=== PATIENT | female | born 1965 | race Caucasian/White ===

== ENCOUNTER 2016-07-29 06:11 | Inpatient (IN) | payer BC ==
[~2016-07-29] VITALS: Ht 149.9 cm; Wt 101.2 kg
[2016-07-29] VITALS (25 sets, daily range): BP systolic 112–154; BP diastolic 51–82; PULSE 74–108; RESP 11–20; Ht 149.9 cm; Wt 101.2 kg
[2016-07-29] MEDS ORDERED: PROPOFOL 20 ML ONE (06:12)
[2016-07-29] MEDS ORDERED: LIDOCAINE 2% (SDV) 5 ML INJ ONE (06:12)
[2016-07-29] MEDS ORDERED: NEOSTIGMINE 3 MG/3 ML SYRINGE ONE (06:12)
[2016-07-29] MEDS ORDERED: ROCURONIUM 50 MG INJ ONE (06:12)
[2016-07-29] MEDS ORDERED: GLYCOPYRROLATE 1 MG INJ ONE (06:12)
[2016-07-29] MEDS ORDERED: MIDAZOLAM 1 MG/ML 2 ML INJ ONE (06:13)
[2016-07-29] MEDS ORDERED: FENTAnyl 50 MCG/ML VIAL ONE ×2 (06:13→12:14)
[2016-07-29] MEDS ORDERED: LIDOCAINE 2%/EPI 30 ML INJ ONE (06:14)
[2016-07-29] MEDS ORDERED: ROPIVACAINE 0.5 % 30 ML VIAL ONE ×2 (06:14→06:39)
[2016-07-29] MEDS ORDERED: DEXAMETHASONE 4 MG/ML 1 ML INJ ONE (06:27)
[2016-07-29] MEDS ORDERED: ONDANSETRON 4 MG INJ ONE ×2 (06:27→12:15)
[2016-07-29] MEDS ORDERED: ATROPINE 1 MG/10 ML SYRINGE IV PRN (06:30)
[2016-07-29] MEDS ORDERED: DIPHENHYDRAMINE 50 MG INJ IV PRN (06:30)
[2016-07-29] MEDS ORDERED: LABETALOL HCL 20MG INJ IV PRN (06:30)
[2016-07-29] MEDS ORDERED: OXYCODONE/ACETAMINOPHEN (5/325) TAB PO PRN ×2 (06:30)
[2016-07-29] MEDS ORDERED: MEPERIDINE 25 MG INJ IV PRN (06:30)
[2016-07-29] MEDS ORDERED: ONDANSETRON 4 MG INJ IV PRN ×2 (06:30→12:30)
[2016-07-29] MEDS ORDERED: morphine (1 MG/ML) 10ML SYRINGE IV PRN ×3 (06:30)
[2016-07-29] MEDS ORDERED: MIDAZOLAM 1 MG/ML 2 ML INJ IV PRN (06:30)
[2016-07-29] MEDS ORDERED: HYDROmorphONE (0.2 MG/ML) 10ML SYG IV PRN ×3 (06:30)
[2016-07-29] MEDS ORDERED: hydrALAzine 20 MG INJ IV PRN (06:30)
[2016-07-29] MEDS ORDERED: FENTAnyl 50 MCG/ML VIAL IV PRN ×2 (06:30)
[2016-07-29] MEDS ORDERED: EPHEDrine SULFATE 50 MG/5 ML SYG IV PRN (06:30)
[2016-07-29] MEDS ORDERED: POVIDONE IODINE 10% 28.4 GM OINT ONE (06:40)
[2016-07-29] MEDS ORDERED: POLYMYXIN/BACITRACIN 1L IRRIG ONE ×2 (06:40→10:20)
[2016-07-29] MEDS ORDERED: FEXO180T61 PO (06:56)
--- NOTE | 2016-07-29 06:58 | HPN ---
Date/Time of Note Date/Time of Note DATE: 07/29/16 TIME: 06:57 Interval H&P Admission Note Pt. seen H&P reviewed: No system changes MOUNA ZUÑIGA MD Jul 29, 2016 06:58
[2016-07-29] MEDS ORDERED: METHYLENE BLUE 10 MG/ML VIAL ONE (08:16)
--- NOTE | 2016-07-29 10:40 | RADRPT ---
PROCEDURE: Intraoperative imaging of the right calcaneus with fluoroscopy. CLINICAL INDICATION: Right calcaneal pain. Intraoperative. TECHNIQUE: 3 images of the right calcaneus were obtained in the operating room with an image inten sifier. No radiologist was in attendance. 0.4 minutes of fluoroscopy time was used. COMPARISON: No prior study is available for comparison. FINDINGS: Images demonstrate osteotomy of the calcaneus and subsequent fixation of the calcaneal fragments wit h 2 cannulated screws. IMPRESSION: 1. Intraoperative imaging of the right calcaneus. RPTAT: QQ .Stone Ramos MD, Date Time Electronically viewed and signed by .Stone Ramos MD, on 07/29/2016 10:40 .R/
[2016-07-29] MEDS ORDERED: MEPERIDINE 25 MG INJ ONE (12:14)
[2016-07-29] MEDS ORDERED: HYDROmorphONE (0.2 MG/ML) 10ML SYG IV ONE (12:15)
[2016-07-29] MEDS ORDERED: morphine 1 MG/ML 30 ML (PCA) ONE (12:29)
[2016-07-29] MEDS ORDERED: morphine 10 MG INJ IV PRN (12:30)
[2016-07-29] MEDS ORDERED: BISACODYL 10 MG SUPP PR PRN (12:30)
[2016-07-29] MEDS ORDERED: CEFAZOLIN 1 GM INJ IV SCH (12:30)
[2016-07-29] MEDS: morphine 1 MG/ML 30 ML (PCA) IV SCH ×3 (12:31→23:51)
[2016-07-29] MEDS ORDERED: CEFAZOLIN 2 GM/50 ML (PMX) 50 ML IVPB ONE (12:53)
[2016-07-29] MEDS: CEFAZOLIN 2 GM/50 ML (PMX) 50 ML IVPB SCH ×2 (13:02→21:14)
[2016-07-29 13:05] LABS: ADD UMIC NO; URINE BILIRUBIN (Dip) NEGATIVE (NEGATIVE); URINE BLOOD (Dip) NEGATIVE (NEGATIVE); URINE COLOR LT. YELLOW (YELLOW); URINE GLUCOSE (Dip) NEGATIVE (NEGATIVE); URINE KETONES (Dip) NEGATIVE (NEGATIVE); URINE LEUKOCYTE ESTERASE (Dip) NEGATIVE (NEGATIVE); URINE NITRITE (Dip) NEGATIVE (NEGATIVE); URINE TOTAL PROTEIN (Dip) NEGATIVE (NEGATIVE); URINE UROBILINOGEN (Dip) 0.2 E.U./dL (0.1-1.0)
[2016-07-29] MEDS: SOD CHLORIDE 0.9% 1,000 ML IV SCH ×2 (13:05→21:15)
[2016-07-29] MEDS ORDERED: ALPRAZOLAM 0.5 MG TAB PO PRN (13:30)
--- NOTE | 2016-07-29 13:50 | CONS ---
DATE OF ADMISSION: 07/29/2016 DATE OF CONSULTATION: TYPE OF CONSULTATION: Medical. Thank you, Dr. Ramirez, for asking me to participate in medical management of this patient. REASON FOR CONSULTATION: To manage the patient's anxiety/depression, chronic pain syndrome, and ins omnia. HISTORY OF PRESENT ILLNESS: This 50-year-old female is now postop a right ankle surgery by Dr. Ritika herrera. The patient underwent a right ankle and right posterior tibial tendon reconstruction, a medial calcaneal sliding osteotomy and talonavicular capsule of the right ankle. 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 The patient underwent a nerve block for the procedure. The patient is now in the recovery room. She is lethar gic but does rouse easily to verbal stimuli and answers questions appropriately. PAST MEDICAL HISTORY: Anxiety, depression, morbid obesity, diffuse osteoarthritis with knee pain an d back pain, and allergic rhinitis. MEDICATIONS: She is on the following medications: 1. Alprazolam 1 mg twice a day as needed. 2. Astelin 1 spray in each nostril daily. 3. Cymbalta 120 mg a day. 4. Embeda 30 mg/1.2 mg extended release 1 tablet twice a day. 5. Lotrisone cream to affected area b.i.d. p.r.n. 6. Lyrica 150 mg twice a day. 7. Methocarbamol 750 mg twice a day. 8. Percocet 10/325 b.i.d. p.r.n. pain. 9. Trazodone 50 mg at night. 10. Abilify 5 mg in the morning. ALLERGIES: THE PATIENT IS ALLERGIC TO WHEAT, SOY, DAIRY, ESTROGEN, PROGESTERONE. FAMILY HISTORY: Unremarkable. SOCIAL HISTORY: The patient has never smoked. PHYSICAL EXAMINATION: GENERAL: At this time reveals a well-developed female in no apparent distress. VITAL SIGNS: Pulse of 86, blood pressure 147/52, O2 saturation 100% on 2 liter nasal cannula. HEENT: Head normocephalic. EYES: Extraocular muscles intact. NOSE AND MOUTH: Normal. NECK: Supple. No neck vein distention. LUNGS: Clear to auscultation. HEART: Regular rhythm. No murmurs, gallops or rubs. ABDOMEN: Soft, nontender. EXTREMITIES: She has a large cast on the right foot and ankle. Her left leg, there is no edema. IMPRESSION: The patient is now stable after having a right foot and ankle surgery today. She has a history of anxiety, depression, insomnia, allergic rhinitis and diffuse osteoarthritis with pain sy ndrome. I will manage the patient's medical conditions. PLAN: 1. Reorder routine medications. 2. Check labs in the morning. 3. Postop right foot and ankle reconstructive surgery. 4. I will follow the patient along with you. Dictated By: BAILEE ABRAMS MD, ND/SIMI Conf#: [id number] DID#: [id number]
[2016-07-29] MEDS: DIPHENHYDRAMINE 25 MG CAP PO PRN ×2 (15:51→23:55)
[2016-07-29] MEDS: OXYCODONE/ACETAMINOPHEN (5/325) TAB PO PRN ×2 (16:55→21:14)
[2016-07-29] MEDS: traZODone 50 MG TAB PO SCH (21:14)
[2016-07-29] MEDS: PREGABALIN 75 MG CAP PO SCH (21:14)
--- NOTE | 2016-07-29 22:31 | OPR ---
DATE OF OPERATION: 07/29/2016 PREOPERATIVE DIAGNOSES: Tear of the right posterior tibial tendon and spring ligament with planoval anton foot. POSTOPERATIVE DIAGNOSES: Tear of the right posterior tibial tendon and spring ligament with planova lgus foot. OPERATION PERFORMED: 1. Medial sliding calcaneal osteotomy of the right hindfoot with screw fixation. 2. Debridement of torn posterior tibial tendon and tenosynovectomy of the tendon sheath. 3. Flexor digitorum longus transfer to the navicular. 4. Reefing of spring ligament and talonavicular capsule. 5. Use of fluoroscopy to verify position and alignment of the osteotomy pins and screws. 6. Short leg cast. Extremely complex and difficult procedure because the patient had a very high BMI, more than 40 and the anatomy was quite abnormal, structures were quite scarred in, all necessitating an additional 60 minutes of operative time (22). SURGEON: Mouna Ramirez MD BRAKE LINING DRILLER: Teddy Madsen MD. ANESTHESIA: General with popliteal block. TOURNIQUET TIME: 1. 38 minutes. 2. 80 minutes. DESCRIPTION OF PROCEDURE: The patient taken to the operating room and placed in supine position. S atisfactory popliteal block was given. Satisfactory general anesthesia was administered, 2 grams An cef given intravenously. The patient was rolled in the left lateral decubitus position, secured wit h beanbag, kidney rest, axillary roll, arms were carefully padded. Tourniquet inflated to 300 mmHg. An oblique 45-degree incision was marked on the skin under fluoroscopy at the appropriate position . Incision was made, dissection carried down to subcutaneous tissue to the periosteum. Periosteum was then marked with a 45-degree angle, again under fluoroscopy and the periosteum was elevated with electrosurgery. Oscillating saw was used to cut through the calcaneus. We stopped at the medial c ortex and finished it carefully with a thin osteotome and shifted over almost 1 cm, fixated with one 4.5 and one 7.3 AO cannulated screws. The guide pins were initially inserted, checked in the AP an d lateral directions to make sure they were in appropriate position, 4.5 screw was drilled and inser marge, then the 7.3 screw was drilled and inserted. Final fluoroscopic view showed good position and alignment of the calcaneal osteotomy with the screws in place and good correction of the osteotomy. The wounds were irrigated with antibiotic solution. Power rasp was used to remove the remaining la teral ridge. Subcutaneous tissue closed with 2-0 and 3-0 undyed Vicryl, and the skin with 4-0 black nylon. Compression dressing was temporarily applied. All the drapes were removed. All new instru ments were used. The patient was rolled back on her back. The beanbag was removed. She was reposi tioned. Then reprepped and draped. Incision was made from several centimeters above the tip of the medial malleolus towards the first M TP joint. Dissection carried down to subcutaneous tissue. Bleeders were coagulated as encountered. The posterior tibial tendon sheath was opened. There was a lot of tenosynovitis. There was minim al posterior tibial tendon left, nothing proximally could be found and even distally was just thin s hreds. She clearly needed to have the FDL transfer. The FDL was identified and isolated proximally . The abductor hallucis was then lifted up off the plantar surface of the foot and the deep fascia was released near the knot of German until we could identify where the FHL and FDL crossed. These we re then dissected out and 0 FiberWire was used to sew the FHL to the distal portion of the FDL in ne utral position. Once this was done, the FDL was cut, all communicating fibers to the FHL were relea sed and the tendon was brought out of the operative field. It was debrided and then 0 FiberWire was used in a running suture. The center of the navicular was then identified. A drill hole made with a guide pin from the 4.5 and was enlarged until a good size to pass the graft. The spring ligament was identified to be reefed as well. Throughout the surgery, the foot was irrigated with antibioti c solution repeatedly. A passer was used to pass the FDL tendon from plantar to dorsal. The foot w as placed in maximal plantarflexion, inversion and the tendon was pulled tight and then sutured on i tself with 0 FiberWire repeatedly. Once this was done, the foot was fairly secure. The spring liga ment was reefed with 0 FiberWire. The tendon sheath was closed with a running 2-0 and 3-0 PDS. The abductor hallucis was reapproximated to the foot with a running 3-0 PDS. Tourniquet was released, bleeders were coagulated, wounds irrigated repeatedly with antibiotic solution. Subcutaneous tissue closed with 2-0 and 3-0 undyed Vicryl, and the skin with 4-0 black nylon. Compression dressing was applied with a short leg cast, inverted and plantar flexed maximally. At the end of procedure, spo nge and needle count was correct. Patient tolerated procedure well and the cast was split in the re covery room. Dictated By: MOUNA COLLADO/SIMI Conf#: [id number] DID#: [id number]
[2016-07-30 00:26] VITALS: BP 133/62; RESP 19
--- NOTE | 2016-07-30 01:02 | OPR ---
DATE OF OPERATION: 07/29/2016 ADDENDUM DIETETICS PROFESSOR ORTHOPEDIC SURGEON: During the procedure, an sales support assistant orthopedic surgeon was used at my request. The sales support assistant helped with inserting the screws in the osteotomy while I held the osteotomy reduced. In addition, the sales support assistant helped with sewing the graft in and securing it in the navicul ar while I held the foot reduced, plantar flexion, inversion. Without a skilled orthopedic surgeon assisting me, this surgery could not have been done, and they should be compensated appropriately. Dictated By: MOUNA COLLADO/SIMI Conf#: [id number] DID#: [id number]
[2016-07-30] MEDS: OXYCODONE/ACETAMINOPHEN (5/325) TAB PO PRN ×4 (01:15→17:48)
[2016-07-30] MEDS: SOD CHLORIDE 0.9% 1,000 ML IV SCH ×2 (01:17→18:12)
[2016-07-30] MEDS: CEFAZOLIN 2 GM/50 ML (PMX) 50 ML IVPB SCH ×3 (05:05→22:38)
[2016-07-30] MEDS: morphine 1 MG/ML 30 ML (PCA) IV SCH (05:10)
[2016-07-30 08:00] VITALS: BP 144/61; RESP 20
[2016-07-30 08:19] LABS: BASOPHILS % 0.1 % (0.0-2.0); EOSINOPHILS # 0.4 10^3/ul (0.0-0.5); EOSINOPHILS % 4.3 % (0.0-7.0); HEMOGLOBIN 9.9 g/dl (12.0-16.0); MEAN CORPUSCULAR HEMOGLOBIN 27.6 pg (29.0-33.0); MEAN CORPUSCULAR HGB CONC 32.8 g/dl (32.0-37.0); MEAN CORPUSCULAR VOLUME 84.3 fl (82.0-101.0); MEAN PLATELET VOLUME 7.6 fl (7.4-10.4); MONOCYTE # 0.7 10^3/ul (0.3-0.9); MONOCYTES % 8.4 % (0.0-11.0); NEUTROPHIL # 6.2 10^3/ul (1.6-7.5); NEUTROPHILS % 75.2 % (39.0-77.0); PLATELET COUNT 303 10^3/UL (140-440); RED BLOOD COUNT 3.56 10^6/ul (4.20-5.40); RED CELL DISTRIBUTION WIDTH 15.4 % (11.5-14.5); UNCORRECTED WBC 8.2 10^3/ul (4.8-10.8); WHITE BLOOD COUNT 8.2 10^3/ul (4.8-10.8)
[2016-07-30 08:25] LABS: ALBUMIN 3.4 g/dl (3.3-4.9)
[2016-07-30 08:26] LABS: POTASSIUM 4.2 mmol/L (3.5-5.1)
[2016-07-30 08:28] LABS: ALBUMIN/GLOBULIN RATIO 1.21; CREATININE 0.72 mg/dl (0.44-1.00); TOTAL PROTEIN 6.2 g/dl (6.1-8.1)
[2016-07-30 08:29] LABS: CALCIUM 8.7 mg/dl (8.4-10.2)
--- NOTE | 2016-07-30 08:43 | CONS ---
Date/Time of Note Date/Time of Note DATE: 07/30/16 TIME: 08:34 Assessment/Plan Assessment/Plan Chief Complaint/Hosp Course 1. she is 1 day post op a R foot and ankle surgery , she has pain and is being medicated for this . 2. continue current medications and PT . 3. labs are pending Problems: Consultation Date/Type/Reason Admit Date/Time Initial Consult Date Type of Consultation: medicine 24 HR Interval Summary Free Text/Dictation She is 1 day post op a R ankle /foot surgery . she is having pain which is being medicated . Exam/Review of Systems Vital Signs Vitals Vital Signs Date Time Temp Pulse Resp B/P Pulse Ox O2 Delivery O2 Flow Rate FiO2 07/30/16 08:01 98.2 07/30/16 08:00 92 20 144/61 99 07/29/16 17:50 Nasal Cannula 2.0 Intake and Output 07/29/16 07/29/16 07/30/16 15:00 23:00 07:00 Intake Total 1250 ml 1200 ml 1500 ml Output Total 1100 ml 1000 ml 2000 ml Balance 150 ml 200 ml -500 ml Exam R foot and ankle with a large cast Constitutional: alert, oriented, well developed Psych: nl mood/affect, no complaints Respiratory: clear to auscultation, normal air movement Cardiovascular: regular rate and rhythm Musculoskeletal: nl extremities to inspection Results Results 24 hrs Laboratory Tests Test 07/29/16 12:41 Urine Bilirubin NEGATIVE Urine Clarity CLEAR Urine Color LT. YELLOW Urine Glucose NEGATIVE Urine Hemoglobin NEGATIVE Urine Ketones NEGATIVE Urine Leukocyte Esterase NEGATIVE Urine Nitrite NEGATIVE Urine Specific [place] <=1.005 L Urine Total Protein NEGATIVE Urine Urobilinogen 0.2 E.U./dL Urine pH 6.0 Medications Medications Current Medications Senna/Docusate Sodium (Senokot-S) 1 tab BID PO ; Start 07/30/16 at 09:00 Magnesium Hydroxide (Milk Of Mag) 30 ml HS PO ; Start 07/31/16 at 21:00 Bisacodyl 10 mg 10 mg DAILY PRN [place] CONSTIPATION; Start 07/29/16 at 12:30 Sodium Chloride (NS) 1,000 ml @ 100 mls/hr Q10H IV Last administered on t 01:17; Admin Dose 100 MLS/HR; Start 07/29/16 at 12:12 Oxycodone/ Acetaminophen (Percocet (5/ 325)) 2 tab Q4H PRN PO PAIN Last administered on 07/30/16 01:15; Admin Dose 2 TAB; Start 07/29/16 at 12:30 Morphine Sulfate (morphine) 5 mg Q4H PRN IV PAIN LEVEL 7-10; Start 07/29/16 at 12:30 Ondansetron HCl (Zofran Inj) 4 mg Q4H PRN IV NAUSEA AND/OR VOMITING; Start at 12:30 Diphenhydramine HCl (Benadryl) 25 mg Q4H PRN PO ITCHING Last administered on 23:55; Admin Dose 25 MG; Start 07/29/16 at 12:30 Morphine Sulfate 1.5 MG DOSE 10 ... Q4PCA IV Last administered on 07/30/16 05 :10; Admin Dose 30 MG; Start 07/29/16 at 12:30 Cefazolin Sodium/ Dextrose (Ancef 2 Gm/50 ml (Pmx)) 50 ml @ 100 mls/hr Q8 IVPB Last administered on 07/30/16 05:05; Admin Dose 100 MLS/HR; Start 07/29/16 at 14:00; Stop 07/31/16 at 06:29 Alprazolam (Xanax) 1 mg Q12H PRN PO ANXIETY Last administered on 07/29/16 22: 45; Admin Dose 1 MG; Start 07/29/16 at 13:30 Duloxetine HCl (Cymbalta) 120 mg DAILY PO ; Start 07/30/16 at 09:00 Pregabalin (Lyrica) 150 mg BID PO Last administered on 07/29/16 21:14; Admin Dose 150 MG; Start 07/29/16 at 21:00 Trazodone HCl (Desyrel) 50 mg HS PO Last administered on 07/29/16 21:14; Admin Dose 50 MG; Start 07/29/16 at 21:00 Azelastine HCl (Astelin) 2 spray DAILY NASAL ; Start 07/30/16 at 09:00 Aripiprazole (Abilify) 5 mg DAILY PO ; Start 07/30/16 at 09:00 BAILEE ABRAMS MD Jul 30, 2016 08:43
[2016-07-30 08:47] LABS: CONDITION 1; LH ANALYZER COMMENTS 1
--- NOTE | 2016-07-30 08:52 | PN ---
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 NWB RLE - 24 hr abx - [place] catheter to be d/c'd tomorrow am. Continue today 2/2 urinary retention. - DVT ppx - xarelto Subjective 24 Hr Interval Summary Free Text/Dictation Pt doing well, slept o/n, [place], mild pain controlled with meds. Exam/Review of Systems Vital Signs Vitals Vital Signs Date Time Temp Pulse Resp B/P Pulse Ox O2 Delivery O2 Flow Rate FiO2 07/30/16 08:01 98.2 07/30/16 08:00 92 20 144/61 99 07/29/16 17:50 Nasal Cannula 2.0 Intake and Output 07/29/16 07/29/16 07/30/16 15:00 23:00 07:00 Intake Total 1250 ml 1200 ml 1500 ml Output Total 1100 ml 1000 ml 2000 ml Balance 150 ml 200 ml -500 ml Exam RLE: elevated, cast intact. mild swelling. BCR. sens intact to dorsal/plantar exposed toes. Results Result Diagram: 07/30/16 0720 07/30/16 0720 Results 24 hrs Laboratory Tests Test 07/29/16 12:41 07/30/16 07:20 Urine Bilirubin NEGATIVE Urine Clarity CLEAR Urine Color LT. YELLOW Urine Glucose NEGATIVE Urine Hemoglobin NEGATIVE Urine Ketones NEGATIVE Urine Leukocyte Esterase NEGATIVE Urine Nitrite NEGATIVE Urine Specific [place] <=1.005 L Urine Total Protein NEGATIVE Urine Urobilinogen 0.2 E.U./dL Urine pH 6.0 Alanine Aminotransferase (ALT/SGPT) 33 Albumin 3.4 Albumin/Globulin Ratio 1.21 Alkaline Phosphatase 72 Anion Gap 12 Aspartate Amino Transf (AST/SGOT) 17 Basophils # 0.0 Basophils % 0.1 Blood Morphology Comment Blood Urea Nitrogen 9 Calcium Level 8.7 Carbon Dioxide Level 29 Chloride Level 106 Creatinine 0.72 Direct Bilirubin 0.00 Eosinophils # 0.4 Eosinophils % 4.3 Globulin 2.80 Glucose Level 96 Hematocrit 30.0 L Hemoglobin 9.9 L Indirect Bilirubin 0.0 Lymphocytes # 1.0 Lymphocytes % 12.0 L Mean Corpuscular Hemoglobin 27.6 L Mean Corpuscular Hemoglobin Concent 32.8 Mean Corpuscular Volume 84.3 Mean Platelet Volume 7.6 Monocytes # 0.7 Monocytes % 8.4 Neutrophils # 6.2 Neutrophils % 75.2 Nucleated Red Blood Cells # 0.0 Nucleated Red Blood Cells % 0.0 Platelet Count 303 Potassium Level 4.2 Red Blood Count 3.56 L Red Cell Distribution Width 15.4 H Sodium Level 143 Total Bilirubin 0.0 L Total Protein 6.2 White Blood Count 8.2 Medications Medications Current Medications Senna/Docusate Sodium (Senokot-S) 1 tab BID PO ; Start 07/30/16 at 09:00 Magnesium Hydroxide (Milk Of Mag) 30 ml HS PO ; Start 07/31/16 at 21:00 Bisacodyl 10 mg 10 mg DAILY PRN [place] CONSTIPATION; Start 07/29/16 at 12:30 Sodium Chloride (NS) 1,000 ml @ 100 mls/hr Q10H IV Last administered on 01:17; Admin Dose 100 MLS/HR; Start 07/29/16 at 12:12 Oxycodone/ Acetaminophen (Percocet (5/ 325)) 2 tab Q4H PRN PO PAIN Last administered on 07/30/16 01:15; Admin Dose 2 TAB; Start 07/29/16 at 12:30 Morphine Sulfate (morphine) 5 mg Q4H PRN IV PAIN LEVEL 7-10; Start 07/29/16 at 12:30 Ondansetron HCl (Zofran Inj) 4 mg Q4H PRN IV NAUSEA AND/OR VOMITING; Start at 12:30 Diphenhydramine HCl (Benadryl) 25 mg Q4H PRN PO ITCHING Last administered on 23:55; Admin Dose 25 MG; Start 07/29/16 at 12:30 Morphine Sulfate 1.5 MG DOSE 10 ... Q4PCA IV Last administered on 07/30/16 05 :10; Admin Dose 30 MG; Start 07/29/16 at 12:30 Cefazolin Sodium/ Dextrose (Ancef 2 Gm/50 ml (Pmx)) 50 ml @ 100 mls/hr Q8 IVPB Last administered on 07/30/16 05:05; Admin Dose 100 MLS/HR; Start 07/29/16 at 14:00; Stop 07/31/16 at 06:29 Duloxetine HCl (Cymbalta) 120 mg DAILY PO ; Start 07/30/16 at 09:00 Pregabalin (Lyrica) 150 mg BID PO Last administered on 07/29/16 21:14; Admin Dose 150 MG; Start 07/29/16 at 21:00 Trazodone HCl (Desyrel) 50 mg HS PO Last administered on 07/29/16 21:14; Admin Dose 50 MG; Start 07/29/16 at 21:00 Azelastine HCl (Astelin) 2 spray DAILY NASAL ; Start 07/30/16 at 09:00 Aripiprazole (Abilify) 5 mg DAILY PO ; Start 07/30/16 at 09:00 Alprazolam (Xanax) 1 mg Q8 PRN PO ANXIETY; Start 07/30/16 at 14:00 MOUNA ZUÑIGA MD Jul 30, 2016 08:52
[2016-07-30] MEDS: PREGABALIN 75 MG CAP PO SCH ×2 (08:56→21:13)
[2016-07-30] MEDS: DULOXETINE 30 MG CAP DR PO SCH (08:56)
[2016-07-30] MEDS: ARIPIPRAZOLE 5 MG TAB PO SCH (08:56)
[2016-07-30] MEDS: SENNA/DOCUSATE NA (8.6MG/50MG) TAB PO SCH ×2 (08:57→21:13)
[2016-07-30] MEDS: AZELASTINE 30 ML NAS SPRAY NASAL SCH (09:00)
[2016-07-30] MEDS ORDERED: LORATADINE 10 MG TAB PO SCH (09:00)
[2016-07-30] MEDS: HYDROmorphONE 0.2 MG/ML PCA IV SCH (12:16)
[2016-07-30] MEDS ORDERED: NALOXONE (0.4 MG/ML) INJ IV PRN (12:30)
[2016-07-30] MEDS ORDERED: DIAZEPAM 5 MG TAB PO PRN (16:00)
[2016-07-30] MEDS: ALPRAZOLAM 0.5 MG TAB PO PRN (16:28)
[2016-07-30] MEDS ORDERED: RIVAROXABAN 10 MG TABLET PO SCH (17:55)
[2016-07-30 20:08] VITALS: BP 115/57; RESP 21
[2016-07-30] MEDS: traZODone 50 MG TAB PO SCH (21:13)
[2016-07-31] MEDS: HYDROmorphONE 0.2 MG/ML PCA IV SCH (02:29)
[2016-07-31] MEDS: OXYCODONE/ACETAMINOPHEN (5/325) TAB PO PRN (02:31)
[2016-07-31] MEDS: SOD CHLORIDE 0.9% 1,000 ML IV SCH (04:12)
[2016-07-31] MEDS: ALPRAZOLAM 0.5 MG TAB PO PRN (04:36)
[2016-07-31] MEDS: CEFAZOLIN 2 GM/50 ML (PMX) 50 ML IVPB SCH (05:42)
[2016-07-31] MEDS ORDERED: morphine 4 MG/ML VIAL IV PRN (06:30)
--- NOTE | 2016-07-31 06:34 | PN ---
Date/Time of Note Date/Time of Note DATE: 07/31/16 TIME: 06:30 Assessment/Plan VTE Prophylaxis VTE Prophylaxis Intervention: ambulation, SCD's, other Lines/Catheters IV Catheter Type (from Nrsg): Peripheral IV Urinary Cath still in place: No Assessment/Plan Assessment/Plan A/P: POD#2 s/p R foot PTT reconstruction/calc osteotomy - Cont pain control. Will increase oral and decrease IV in prep for d/c home - DVT ppx with SCDs and xarelto for 2 weeks - PT today, NWB RLE - d/c [place] this am - pt ok for d/c per ortho today if cleared by medicine and PT Subjective 24 Hr Interval Summary Free Text/Dictation Pt slept o/n, no acute events, still with pain in foot not increased Exam/Review of Systems Vital Signs Vitals Vital Signs Date Time Temp Pulse Resp B/P Pulse Ox O2 Delivery O2 Flow Rate FiO2 07/31/16 04:41 18 07/30/16 20:08 98.5 82 115/57 94 07/29/16 17:50 Nasal Cannula 2.0 Intake and Output 07/30/16 07/30/16 07/31/16 15:00 23:00 07:00 Intake Total 1150 ml 940 ml Output Total 1300 ml 1750 ml Balance -150 ml -810 ml Exam RLE: bcr toes. can DF/PF toes. sens intact. cast intact, leg elevated. Results Result Diagram: 07/30/16 0720 07/30/16 0720 Results 24 hrs Laboratory Tests Test 07/30/16 07:20 Alanine Aminotransferase (ALT/SGPT) 33 Albumin 3.4 Albumin/Globulin Ratio 1.21 Alkaline Phosphatase 72 Anion Gap 12 Aspartate Amino Transf (AST/SGOT) 17 Basophils # 0.0 Basophils % 0.1 Blood Morphology Comment Blood Urea Nitrogen 9 Calcium Level 8.7 Carbon Dioxide Level 29 Chloride Level 106 Creatinine 0.72 Direct Bilirubin 0.00 Eosinophils # 0.4 Eosinophils % 4.3 Globulin 2.80 Glucose Level 96 Hematocrit 30.0 L Hemoglobin 9.9 L Indirect Bilirubin 0.0 Lymphocytes # 1.0 Lymphocytes % 12.0 L Mean Corpuscular Hemoglobin 27.6 L Mean Corpuscular Hemoglobin Concent 32.8 Mean Corpuscular Volume 84.3 Mean Platelet Volume 7.6 Monocytes # 0.7 Monocytes % 8.4 Neutrophils # 6.2 Neutrophils % 75.2 Nucleated Red Blood Cells # 0.0 Nucleated Red Blood Cells % 0.0 Platelet Count 303 Potassium Level 4.2 Red Blood Count 3.56 L Red Cell Distribution Width 15.4 H Sodium Level 143 Total Bilirubin 0.0 L Total Protein 6.2 White Blood Count 8.2 Medications Medications Current Medications Senna/Docusate Sodium (Senokot-S) 1 tab BID PO Last administered on 07/30/16 21:13; Admin Dose 1 TAB; Start 07/30/16 at 09:00 Magnesium Hydroxide (Milk Of Mag) 30 ml HS PO ; Start 07/31/16 at 21:00 Bisacodyl 10 mg 10 mg DAILY PRN [place] CONSTIPATION; Start 07/29/16 at 12:30 Sodium Chloride (NS) 1,000 ml @ 100 mls/hr Q10H IV Last administered on 01:17; Admin Dose 100 MLS/HR; Start 07/29/16 at 12:12 Morphine Sulfate (morphine) 5 mg Q4H PRN IV PAIN LEVEL 7-10; Start 07/29/16 at 12:30 Ondansetron HCl (Zofran Inj) 4 mg Q4H PRN IV NAUSEA AND/OR VOMITING; Start at 12:30 Diphenhydramine HCl (Benadryl) 25 mg Q4H PRN PO ITCHING Last administered on 23:55; Admin Dose 25 MG; Start 07/29/16 at 12:30 Duloxetine HCl (Cymbalta) 120 mg DAILY PO Last administered on 07/30/16 08:56 ; Admin Dose 120 MG; Start 07/30/16 at 09:00 Pregabalin (Lyrica) 150 mg BID PO Last administered on 07/30/16 21:13; Admin Dose 150 MG; Start 07/29/16 at 21:00 Trazodone HCl (Desyrel) 50 mg HS PO Last administered on 07/30/16 21:13; Admin Dose 50 MG; Start 07/29/16 at 21:00 Azelastine HCl (Astelin) 2 spray DAILY NASAL ; Start 07/30/16 at 09:00 Aripiprazole (Abilify) 5 mg DAILY PO Last administered on 07/30/16 08:56; Admin Dose 5 MG; Start 07/30/16 at 09:00 Alprazolam (Xanax) 1 mg Q8 PRN PO ANXIETY Last administered on 07/31/16 04:36; Admin Dose 1 MG; Start 07/30/16 at 14:00 Naloxone HCl (Narcan) 0.2 mg Q2M PRN IV DECREASED REPIRATORY RATE; Start at 12:30 Diazepam (Valium) 5 mg BID PRN PO PAIN; Start 07/30/16 at 16:00 Oxycodone/ Acetaminophen (Percocet (5/ 325)) 1 tab Q4H PRN PO PAIN; Start at 08:30; Status UNV Oxycodone/ Acetaminophen (Endocet (10/ 325)) 1 tab Q4H PRN PO PAIN; Start at 06:30; Status UNV Morphine Sulfate (morphine) 4 mg Q2 PRN IV PAIN; Start 07/31/16 at 06:30; Status UNV MOUNA ZUÑIGA MD Jul 31, 2016 06:34
[2016-07-31] MEDS: OXYCODONE/ACETAMINOPHEN (10/325) TAB PO PRN ×2 (06:42→10:35)
[2016-07-31 07:32] VITALS: BP 141/73; RESP 18
[2016-07-31] MEDS ORDERED: OXYCODONE/ACETAMINOPHEN (5/325) TAB PO PRN (08:30)
--- NOTE | 2016-07-31 08:44 | CONS ---
Date/Time of Note Date/Time of Note DATE: 07/31/16 TIME: 08:40 Assessment/Plan Assessment/Plan Chief Complaint/Hosp Course 1. she is 2 days post op a R foot and ankle surgery , her pain is under control . 2. continue current medications and PT . 3. she could be discharged to home today if cleared by PT . Problems: Consultation Date/Type/Reason Admit Date/Time Jul 30, 2016 at 11:54 Type of Consultation: medicine 24 HR Interval Summary Free Text/Dictation she says that her R foot and ankle pain is coming under control . Constitutional: improved Exam/Review of Systems Vital Signs Vitals Vital Signs Date Time Temp Pulse Resp B/P Pulse Ox O2 Delivery O2 Flow Rate FiO2 07/31/16 07:32 97.3 87 18 141/73 99 07/29/16 17:50 Nasal Cannula 2.0 Intake and Output 07/30/16 07/30/16 07/31/16 15:00 23:00 07:00 Intake Total 1150 ml 940 ml Output Total 1300 ml 1750 ml Balance -150 ml -810 ml Exam R leg with a large cast . Constitutional: alert, oriented, well developed Respiratory: clear to auscultation, normal air movement Cardiovascular: nl pulses, regular rate and rhythm Musculoskeletal: nl extremities to inspection Results Result Diagram: 07/30/16 0720 07/30/16 0720 Medications Medications Current Medications Senna/Docusate Sodium (Senokot-S) 1 tab BID PO Last administered on 07/30/16 21:13; Admin Dose 1 TAB; Start 07/30/16 at 09:00 Magnesium Hydroxide (Milk Of Mag) 30 ml HS PO ; Start 07/31/16 at 21:00 Bisacodyl 10 mg 10 mg DAILY PRN OR CONSTIPATION; Start 07/29/16 at 12:30 Sodium Chloride (NS) 1,000 ml @ 100 mls/hr Q10H IV Last administered on 01:17; Admin Dose 100 MLS/HR; Start 07/29/16 at 12:12 Morphine Sulfate (morphine) 5 mg Q4H PRN IV PAIN LEVEL 7-10; Start 07/29/16 at 12:30 Ondansetron HCl (Zofran Inj) 4 mg Q4H PRN IV NAUSEA AND/OR VOMITING; Start at 12:30 Diphenhydramine HCl (Benadryl) 25 mg Q4H PRN PO ITCHING Last administered on 23:55; Admin Dose 25 MG; Start 07/29/16 at 12:30 Duloxetine HCl (Cymbalta) 120 mg DAILY PO Last administered on 07/30/16 08:56 ; Admin Dose 120 MG; Start 07/30/16 at 09:00 Pregabalin (Lyrica) 150 mg BID PO Last administered on 07/30/16 21:13; Admin Dose 150 MG; Start 07/29/16 at 21:00 Trazodone HCl (Desyrel) 50 mg HS PO Last administered on 07/30/16 21:13; Admin Dose 50 MG; Start 07/29/16 at 21:00 Azelastine HCl (Astelin) 2 spray DAILY NASAL ; Start 07/30/16 at 09:00 Aripiprazole (Abilify) 5 mg DAILY PO Last administered on 07/30/16 08:56; Admin Dose 5 MG; Start 07/30/16 at 09:00 Alprazolam (Xanax) 1 mg Q8 PRN PO ANXIETY Last administered on 07/31/16 04:36; Admin Dose 1 MG; Start 07/30/16 at 14:00 Naloxone HCl (Narcan) 0.2 mg Q2M PRN IV DECREASED REPIRATORY RATE; Start at 12:30 Diazepam (Valium) 5 mg BID PRN PO PAIN; Start 07/30/16 at 16:00 Oxycodone/ Acetaminophen (Percocet (5/ 325)) 1 tab Q4H PRN PO MODERATE PAIN LEVEL 5-7; Start 07/31/16 at 08:30 Oxycodone/ Acetaminophen (Endocet (10/ 325)) 1 tab Q4H PRN PO SEVERE PAIN 8-10 Last administered on 07/31/16 06:42; Admin Dose 1 TAB; Start 07/31/16 at 06:30 Morphine Sulfate (morphine) 4 mg Q2H PRN IV PAIN Last administered on 07/31/16 08:04; Admin Dose 4 MG; Start 07/31/16 at 06:30 BAILEE ABRAMS MD Jul 31, 2016 08:43
[2016-07-31] MEDS: AZELASTINE 30 ML NAS SPRAY NASAL SCH (09:00)
[2016-07-31] MEDS: DULOXETINE 30 MG CAP DR PO SCH (09:25)
[2016-07-31] MEDS: ARIPIPRAZOLE 5 MG TAB PO SCH (09:25)
[2016-07-31] MEDS: PREGABALIN 75 MG CAP PO SCH (09:26)
[2016-07-31] MEDS: SENNA/DOCUSATE NA (8.6MG/50MG) TAB PO SCH (09:26)
[2016-07-31 11:06] LABS: BASOPHILS % 0.2 % (0.0-2.0); EOSINOPHILS # 0.2 10^3/ul (0.0-0.5); EOSINOPHILS % 3.1 % (0.0-7.0); HEMATOCRIT 28.9 % (37.0-47.0); HEMOGLOBIN 9.7 g/dl (12.0-16.0); LYMPHOCYTES # 1.3 10^3/ul (0.8-2.9); LYMPHOCYTES % 15.9 % (15.0-51.0); MEAN CORPUSCULAR HEMOGLOBIN 28.2 pg (29.0-33.0); MEAN CORPUSCULAR HGB CONC 33.7 g/dl (32.0-37.0); MEAN CORPUSCULAR VOLUME 83.7 fl (82.0-101.0); MONOCYTE # 0.5 10^3/ul (0.3-0.9); MONOCYTES % 6.3 % (0.0-11.0); NEUTROPHIL # 5.9 10^3/ul (1.6-7.5); NEUTROPHILS % 74.5 % (39.0-77.0); PLATELET COUNT 325 10^3/UL (140-440); RED BLOOD COUNT 3.46 10^6/ul (4.20-5.40); RED CELL DISTRIBUTION WIDTH 15.2 % (11.5-14.5)
[2016-07-31 11:10] LABS: CONDITION 1; LH ANALYZER COMMENTS 1
[2016-07-31] MEDS ORDERED: MAGNESIUM HYDROXIDE 30ML CUP PO SCH (21:00)
--- NOTE | 2016-08-05 06:32 | DS ---
DATE OF ADMISSION: 07/30/2016 DATE OF DISCHARGE: 07/31/2016 DISCHARGE DIAGNOSES: 1. Tear of the right posterior tibial tendon. 2. Planovalgus hindfoot. SURGERIES: On July 29: 1. Sliding calcaneal osteotomy with screw fixation. 2. Debridement of posterior tibial tendon. 3. FDL transfer to navicular with releasing spring ligament and talonavicular capsule. HISTORY OF PRESENT ILLNESS: The patient is a 50-year-old female well known to me with a long histor y of pain in both feet. Previously had surgery on her left hindfoot with a reconstruction, done vonnie mcgarry, now admitted for surgery to her right. PAST MEDICAL HISTORY: See the history and physical record. PHYSICAL EXAMINATION: Underwent an orthopedic exam which revealed a planovalgus foot and difficulty doing tiptoes and heel leg raise, cannot do a single toe leg raise and no instability. HOSPITAL COURSE: The patient was taken to the operating room and underwent primary procedure. Post operatively, she was up ambulating on the first postoperative day and will be discharged on the seco nd postoperative day. Will be followed on pain pills and antibiotics. Dictated By: MOUNA ZUÑIGA MD RF/SIMI Conf#: [id number] DID#: [id number]
== END 2016-07-31 13:33 | disposition home or self-care (01) | DRG 501 ==
LOC: SDS 06:11 → EDSTATUS 07:00 → MS1 14:24 → SDS 07-30 11:54
PROVIDERS: ADMIT Orthopaedic Surgery; ATTEND Orthopaedic Surgery
PROC: 0LXV0ZZ Transfer Right Foot Tendon, Open Approach (ICD-10-PCS; 2016-07-29)
PROC: 0QSL04Z Reposition Right Tarsal with Internal Fixation Device, Open Approach (ICD-10-PCS; principal; 2016-07-29 07:00)
DX: M21.41 Flat foot [pes planus] (acquired), right foot (principal); Z68.42 Body mass index [BMI] 45.0-49.9, adult; M76.821 Posterior tibial tendinitis, right leg; F41.8 Other specified anxiety disorders; E66.01 Morbid (severe) obesity due to excess calories; G89.4 Chronic pain syndrome; G47.00 Insomnia, unspecified
CPT/HCPCS: 80053; 81003; 85025; 87086; 97116; 97162; 97530; C1713; J0690; J1100; J1170; J2175; J2250; J2270; J2405; J2710; J2795; J3010; J7030